=== PATIENT | female | born 1935 | race Asian ===

== ENCOUNTER 2018-07-01 16:12 | Inpatient (IN) | payer MEDICARE, MEDICAID | END 2018-07-02 18:06 | disposition home or self-care (01) | LOC: ER 16:12 → TELE 19:35 → TELE-WESTW 22:45 | DX: S52.502A Unspecified fracture of the lower end of left radius, initial encounter for closed fracture (principal); S52.612A Displaced fracture of left ulna styloid process, initial encounter for closed fracture ==